=== PATIENT | female | born 1975 | race Caucasian/White ===

== ENCOUNTER 2019-06-08 05:05 | Inpatient (IN) | payer OTHER ==
[2019-06-08 05:43] LABS: ADD MAN DIFF? NO
[2019-06-08] MEDS: SOD CHLORIDE 0.9% 1,000 ML IV ×2 (05:44→09:43)
[2019-06-08] MEDS: morphine 4 MG/ML VIAL IV ×3 (05:44→09:44)
[2019-06-08] MEDS: ONDANSETRON 4 MG INJ IV ×2 (05:44→15:53)
[2019-06-08 05:48] LABS: BASOPHILS % 0.1 % (0.0-2.0); HEMOGLOBIN 15.3 g/dl (12.0-16.0); LYMPHOCYTES # 1.5 10^3/ul (0.8-2.9); LYMPHOCYTES % 7.4 % (15.0-51.0); MEAN CORPUSCULAR HGB CONC 33.3 g/dl (32.0-37.0); MEAN CORPUSCULAR VOLUME 93.1 fl (82.0-101.0); MEAN PLATELET VOLUME 9.9 fl (7.4-10.4); MONOCYTE # 1.5 10^3/ul (0.3-0.9); MONOCYTES % 7.1 % (0.0-11.0); NEUTROPHIL # 17.5 10^3/ul (1.6-7.5); NEUTROPHILS % 84.9 % (39.0-77.0); PLATELET COUNT 251 10^3/UL (140-415); RED BLOOD COUNT 4.94 10^6/ul (4.20-5.40); RED CELL DISTRIBUTION WIDTH 12.3 % (11.5-14.5)
[2019-06-08 05:48] LABS: WHITE BLOOD COUNT 20.7 10^3/ul (4.8-10.8)
[2019-06-08 06:05] LABS: ALANINE AMINOTRANSFERASE 30 IU/L (13-69); ALBUMIN 4.3 g/dl (3.3-4.9); ALKALINE PHOSPHATASE 76 IU/L (42-121); ANION GAP 9 (5-13); ASPARTATE AMINO TRANSFERASE 23 IU/L (15-46); BILIRUBIN,INDIRECT 0.8 mg/dl (0-1.1); BILIRUBIN,TOTAL 0.8 mg/dl (0.2-1.3); BLOOD UREA NITROGEN 11 mg/dl (7-20); CALCIUM 9.4 mg/dl (8.4-10.2); CARBON DIOXIDE 27 mmol/L (21-31); CHLORIDE 102 mmol/L (97-110); CREATININE 0.77 mg/dl (0.44-1.00); Estimated GFR > 60 mL/min (>60); GLUCOSE 125 mg/dl (70-220); LIPASE 73 U/L (23-300); SODIUM 138 mmol/L (135-144); TOTAL PROTEIN 7.6 g/dl (6.1-8.1)
[2019-06-08] MEDS: CEFTRIAXONE 1 GM/50 ML (PMX) 50 ML IVPB (07:08)
[2019-06-08] MEDS: metroNIDAZOLE 500 MG/NS (PMX) 100 ML IVPB ×2 (07:45→22:34)
[2019-06-08] MEDS ORDERED: ONDANSETRON 4 MG INJ IV ×2 (09:00→14:30)
[2019-06-08] MEDS ORDERED: ACETAMINOPHEN 325 MG TAB PO (09:00)
[2019-06-08] MEDS ORDERED: NA PHOSPHATE/BIPHOS 133 ML ENEMA PR (10:30)
[2019-06-08] MEDS ORDERED: NACL 0.9% 3 ML SYG IV (10:30)
[2019-06-08] MEDS: DIPHTH/TET/ACEL PERTUSS (ADULT) 0.5 ML VIAL IM* (11:27)
[2019-06-08 11:28] LABS: THYROID STIMULATING HORMONE 0.965 MIU/L (0.465-4.680)
[2019-06-08 11:28] LABS: HEPATITIS B SURFACE ANTIGEN NEGATIVE (NEGATIVE)
[2019-06-08 11:45] LABS: HEPATITIS C VIRAL ANTIBODY NEGATIVE (NEGATIVE)
[2019-06-08] MEDS: FLUTICASONE/VILANTEROL 100-25 INH (11:51)
[2019-06-08] MEDS ORDERED: PROPOFOL 20 ML (13:26)
[2019-06-08] MEDS ORDERED: ROCURONIUM 50 MG INJ (13:41)
[2019-06-08] MEDS ORDERED: LIDOCAINE 2% (SDV) 5 ML INJ (13:41)
[2019-06-08] MEDS ORDERED: DEXAMETHASONE 4 MG/ML 5 ML INJ (13:44)
[2019-06-08] MEDS ORDERED: ONDANSETRON 4 MG INJ (13:45)
[2019-06-08] MEDS ORDERED: SODIUM CL BACTERIOSTATIC 30 ML INJ (13:59)
[2019-06-08] MEDS: BUPIVACAINE 0.5%/EPI (SDV) 10 ML INJ (14:03)
[2019-06-08] MEDS ORDERED: SUGAMMADEX SODIUM 200 MG/2 ML VIAL IV (14:07)
[2019-06-08] MEDS ORDERED: OXYCODONE/ACETAMINOPHEN (5/325) TAB PO (14:30)
[2019-06-08] MEDS: HYDROmorphONE 0.5 MG/0.5 ML SYG IV ×2 (15:39→22:35)
[2019-06-08] MEDS: OXYCODONE/ACETAMINOPHEN (5/325) TAB PO (18:18)
[2019-06-08] MEDS: CEFAZOLIN 1 GM/50 ML (PMX) 50 ML IVPB (21:43)
[2019-06-08] MEDS: FAMOTIDINE 20 MG INJ IV (21:48)
[2019-06-09] MEDS: HYDROmorphONE 0.5 MG/0.5 ML SYG IV ×2 (03:56→11:01)
[2019-06-09 05:25] LABS: ADD MAN DIFF? NO
[2019-06-09 05:30] LABS: WHITE BLOOD COUNT 16.8 10^3/ul (4.8-10.8)
[2019-06-09 05:30] LABS: BASOPHILS % 0.1 % (0.0-2.0); HEMATOCRIT 37.8 % (37.0-47.0); HEMOGLOBIN 12.2 g/dl (12.0-16.0); LYMPHOCYTES # 1.1 10^3/ul (0.8-2.9); LYMPHOCYTES % 6.7 % (15.0-51.0); MEAN CORPUSCULAR HEMOGLOBIN 30.9 pg (29.0-33.0); MEAN CORPUSCULAR HGB CONC 32.3 g/dl (32.0-37.0); MEAN CORPUSCULAR VOLUME 95.7 fl (82.0-101.0); MEAN PLATELET VOLUME 10.1 fl (7.4-10.4); NEUTROPHIL # 14.5 10^3/ul (1.6-7.5); NEUTROPHILS % 86.7 % (39.0-77.0); PLATELET COUNT 194 10^3/UL (140-415); RED BLOOD COUNT 3.95 10^6/ul (4.20-5.40); RED CELL DISTRIBUTION WIDTH 12.9 % (11.5-14.5)
[2019-06-09] MEDS: CEFAZOLIN 1 GM/50 ML (PMX) 50 ML IVPB (05:55)
[2019-06-09 05:57] LABS: ALANINE AMINOTRANSFERASE 29 IU/L (13-69); ALBUMIN 2.9 g/dl (3.3-4.9); ALBUMIN/GLOBULIN RATIO 0.96; ALKALINE PHOSPHATASE 58 IU/L (42-121); ANION GAP 3 (5-13); ASPARTATE AMINO TRANSFERASE 33 IU/L (15-46); BILIRUBIN,INDIRECT 0.3 mg/dl (0-1.1); BILIRUBIN,TOTAL 0.3 mg/dl (0.2-1.3); BLOOD UREA NITROGEN 8 mg/dl (7-20); CALCIUM 8.1 mg/dl (8.4-10.2); CARBON DIOXIDE 26 mmol/L (21-31); CHLORIDE 106 mmol/L (97-110); CREATININE 0.67 mg/dl (0.44-1.00); Estimated GFR > 60 mL/min (>60); GLUCOSE 98 mg/dl (70-220); POTASSIUM 3.7 mmol/L (3.5-5.1); SODIUM 135 mmol/L (135-144); TOTAL PROTEIN 5.9 g/dl (6.1-8.1)
[2019-06-09] MEDS: metroNIDAZOLE 500 MG/NS (PMX) 100 ML IVPB ×3 (06:29→22:15)
[2019-06-09] MEDS: OXYCODONE/ACETAMINOPHEN (5/325) TAB PO (07:31)
[2019-06-09] MEDS: FLUTICASONE/VILANTEROL 100-25 INH (09:00)
[2019-06-09] MEDS: FAMOTIDINE 20 MG TAB PO ×2 (09:40→20:43)
[2019-06-09 11:08] LABS: LACTIC ACID 1.2 mmol/L (0.5-2.0)
[2019-06-09] MEDS: morphine 2 MG INJ IV (13:09)
[2019-06-09] MEDS: LACTOBACILLUS RHAMNOSUS CAP PO ×2 (13:09→20:43)
[2019-06-09] MEDS: DOCUSATE SODIUM 250 MG CAP PO (13:09)
[2019-06-09] MEDS: LEVOFLOXACIN 500MG/D5W (PMX) 100 ML IVPB (13:10)
[2019-06-09] MEDS: HYDROCODONE/APAP (7.5/325) TAB PO ×2 (14:27→20:43)
[2019-06-09] MEDS: morphine 4 MG/ML VIAL IV ×2 (17:32→22:16)
[2019-06-09] MEDS: ACETAMINOPHEN 500 MG TAB PO (18:45)
[2019-06-10] MEDS: ACETAMINOPHEN 500 MG TAB PO ×3 (02:22→12:30)
[2019-06-10] MEDS: morphine 4 MG/ML VIAL IV ×4 (02:22→22:46)
[2019-06-10 05:06] LABS: ADD MAN DIFF? NO
[2019-06-10 05:07] LABS: BASOPHILS % 0.2 % (0.0-2.0); EOSINOPHILS % 0.2 % (0.0-7.0); HEMATOCRIT 36.2 % (37.0-47.0); HEMOGLOBIN 11.9 g/dl (12.0-16.0); LYMPHOCYTES # 1.4 10^3/ul (0.8-2.9); LYMPHOCYTES % 9.7 % (15.0-51.0); MEAN CORPUSCULAR HEMOGLOBIN 31.1 pg (29.0-33.0); MEAN CORPUSCULAR HGB CONC 32.9 g/dl (32.0-37.0); MEAN CORPUSCULAR VOLUME 94.5 fl (82.0-101.0); MONOCYTE # 1.3 10^3/ul (0.3-0.9); MONOCYTES % 8.5 % (0.0-11.0); NEUTROPHILS % 80.9 % (39.0-77.0); PLATELET COUNT 174 10^3/UL (140-415); RED BLOOD COUNT 3.83 10^6/ul (4.20-5.40); RED CELL DISTRIBUTION WIDTH 12.9 % (11.5-14.5)
[2019-06-10 05:07] LABS: WHITE BLOOD COUNT 14.8 10^3/ul (4.8-10.8)
[2019-06-10 05:38] LABS: ANION GAP 4 (5-13); BLOOD UREA NITROGEN 7 mg/dl (7-20); CARBON DIOXIDE 26 mmol/L (21-31); CHLORIDE 104 mmol/L (97-110); CREATININE 0.69 mg/dl (0.44-1.00); Estimated GFR > 60 mL/min (>60); GLUCOSE 87 mg/dl (70-220); MAGNESIUM 1.7 mg/dl (1.7-2.5); PHOSPHORUS 2.9 mg/dl (2.5-4.9); POTASSIUM 3.5 mmol/L (3.5-5.1); SODIUM 134 mmol/L (135-144)
[2019-06-10] MEDS: metroNIDAZOLE 500 MG/NS (PMX) 100 ML IVPB ×2 (05:54→14:19)
[2019-06-10] MEDS: HYDROCODONE/APAP (7.5/325) TAB PO ×2 (05:55→14:19)
[2019-06-10] MEDS: DOCUSATE SODIUM 250 MG CAP PO (09:00)
[2019-06-10] MEDS: FAMOTIDINE 20 MG TAB PO ×2 (09:00→21:56)
[2019-06-10] MEDS: LACTOBACILLUS RHAMNOSUS CAP PO ×2 (09:00→21:56)
[2019-06-10] MEDS: FLUTICASONE/VILANTEROL 100-25 INH (09:30)
[2019-06-10] MEDS: IOHEXOL 14.3 MG(I)/ML (ADULT) BTL PO (10:14)
[2019-06-10] MEDS: ONDANSETRON 4 MG INJ IV (10:18)
[2019-06-10] MEDS: CEFTRIAXONE 1 GM/50 ML (PMX) 50 ML IVPB (11:33)
[2019-06-10] MEDS: POLYETHYLENE GLYCOL 17 GM PACKET PO (12:00)
[2019-06-10] MEDS: IOHEXOL 300MG/ML 150 ML BTL (12:14)
[2019-06-10] MEDS: SOD CHLORIDE 0.9% 100 ML (12:14)
[2019-06-10] MEDS: LEVOFLOXACIN 500MG/D5W (PMX) 100 ML IVPB (12:17)
[2019-06-10] MEDS: PIPER-TAZO 3.375 GM IV (PMX) 100 ML IVPB (17:21)
[2019-06-11] MEDS: PIPER-TAZO 3.375 GM IV (PMX) 100 ML IVPB ×4 (00:04→19:59)
[2019-06-11] MEDS: ACETAMINOPHEN 650 MG SUPP PR (02:49)
[2019-06-11 06:13] LABS: ADD MAN DIFF? NO
[2019-06-11 06:19] LABS: WHITE BLOOD COUNT 19.4 10^3/ul (4.8-10.8)
[2019-06-11 06:19] LABS: ABNORMAL IP MESSAGE 1; BASOPHILS % 0.2 % (0.0-2.0); EOSINOPHILS # 0.1 10^3/ul (0.0-0.5); EOSINOPHILS % 0.4 % (0.0-7.0); HEMATOCRIT 35.6 % (37.0-47.0); HEMOGLOBIN 11.8 g/dl (12.0-16.0); LYMPHOCYTES # 1.1 10^3/ul (0.8-2.9); LYMPHOCYTES % 5.6 % (15.0-51.0); MEAN CORPUSCULAR HGB CONC 33.1 g/dl (32.0-37.0); MEAN CORPUSCULAR VOLUME 93.4 fl (82.0-101.0); MEAN PLATELET VOLUME 10.2 fl (7.4-10.4); MONOCYTE # 1.5 10^3/ul (0.3-0.9); MONOCYTES % 7.8 % (0.0-11.0); NEUTROPHIL # 16.6 10^3/ul (1.6-7.5); NEUTROPHILS % 85.4 % (39.0-77.0); PLATELET COUNT 211 10^3/UL (140-415); RED BLOOD COUNT 3.81 10^6/ul (4.20-5.40)
[2019-06-11 06:28] LABS: POSITIVE DIFF @See below
[2019-06-11 06:41] LABS: ANION GAP 9 (5-13); BLOOD UREA NITROGEN 6 mg/dl (7-20); CALCIUM 8.2 mg/dl (8.4-10.2); CARBON DIOXIDE 25 mmol/L (21-31); CHLORIDE 101 mmol/L (97-110); CREATININE 0.61 mg/dl (0.44-1.00); Estimated GFR > 60 mL/min (>60); GLUCOSE 69 mg/dl (70-220); POTASSIUM 3.2 mmol/L (3.5-5.1); SODIUM 135 mmol/L (135-144)
[2019-06-11] MEDS: morphine 4 MG/ML VIAL IV ×3 (06:53→21:36)
[2019-06-11] MEDS: POLYETHYLENE GLYCOL 17 GM PACKET PO (09:00)
[2019-06-11] MEDS: FLUTICASONE/VILANTEROL 100-25 INH (09:59)
[2019-06-11] MEDS: LACTOBACILLUS RHAMNOSUS CAP PO ×2 (10:00→21:30)
[2019-06-11] MEDS: DOCUSATE SODIUM 250 MG CAP PO (10:00)
[2019-06-11] MEDS: FAMOTIDINE 20 MG TAB PO ×2 (10:00→21:30)
[2019-06-11 12:57] LABS: INR 1.34; PROTIME 16.7 Sec (11.9-14.9); PT RATIO 1.3
[2019-06-11 12:58] LABS: PARTIAL THROMBOPLASTIN TIME 36.9 Sec (23.0-35.0)
[2019-06-11] MEDS: IOHEXOL 300MG/ML 150 ML BTL (13:36)
[2019-06-11] MEDS: FENTAnyl 50 MCG/ML VIAL ×2 (14:19→14:35)
[2019-06-11] MEDS: LIDOCAINE 1% (MDV) 20 ML INJ (14:19)
[2019-06-11] MEDS: ACETAMINOPHEN 325 MG TAB PO (21:38)
[2019-06-12] MEDS: morphine 4 MG/ML VIAL IV (05:07)
[2019-06-12] MEDS: PIPER-TAZO 3.375 GM IV (PMX) 100 ML IVPB ×5 (05:09→23:41)
[2019-06-12 06:19] LABS: ADD MAN DIFF? NO
[2019-06-12 06:21] LABS: WHITE BLOOD COUNT 10.8 10^3/ul (4.8-10.8)
[2019-06-12 06:21] LABS: BASOPHILS % 0.2 % (0.0-2.0); EOSINOPHILS # 0.1 10^3/ul (0.0-0.5); HEMOGLOBIN 11.4 g/dl (12.0-16.0); LYMPHOCYTES # 1.1 10^3/ul (0.8-2.9); LYMPHOCYTES % 10.6 % (15.0-51.0); MEAN CORPUSCULAR HEMOGLOBIN 30.4 pg (29.0-33.0); MEAN CORPUSCULAR HGB CONC 32.6 g/dl (32.0-37.0); MEAN CORPUSCULAR VOLUME 93.3 fl (82.0-101.0); MEAN PLATELET VOLUME 9.8 fl (7.4-10.4); NEUTROPHIL # 8.5 10^3/ul (1.6-7.5); NEUTROPHILS % 78.7 % (39.0-77.0); PLATELET COUNT 226 10^3/UL (140-415); RED BLOOD COUNT 3.75 10^6/ul (4.20-5.40); RED CELL DISTRIBUTION WIDTH 13.2 % (11.5-14.5)
[2019-06-12 07:07] LABS: ANION GAP 6 (5-13); BLOOD UREA NITROGEN 5 mg/dl (7-20); CALCIUM 8.2 mg/dl (8.4-10.2); CARBON DIOXIDE 30 mmol/L (21-31); CHLORIDE 103 mmol/L (97-110); CREATININE 0.63 mg/dl (0.44-1.00); Estimated GFR > 60 mL/min (>60); GLUCOSE 121 mg/dl (70-220); POTASSIUM 3.4 mmol/L (3.5-5.1); SODIUM 139 mmol/L (135-144)
[2019-06-12] MEDS: POLYETHYLENE GLYCOL 17 GM PACKET PO (09:00)
[2019-06-12] MEDS: FAMOTIDINE 20 MG TAB PO ×2 (09:31→20:47)
[2019-06-12] MEDS: LACTOBACILLUS RHAMNOSUS CAP PO ×2 (09:31→20:47)
[2019-06-12] MEDS: FLUTICASONE/VILANTEROL 100-25 INH (09:31)
[2019-06-12] MEDS: DOCUSATE SODIUM 250 MG CAP PO (09:31)
[2019-06-12] MEDS: HYDROCODONE/APAP (7.5/325) TAB PO ×2 (09:36→17:46)
[2019-06-12] MEDS: POTASSIUM CHLORIDE (SR) 20 MEQ TAB PO (13:47)
[2019-06-12] MEDS: SOD CHLORIDE 0.9% 500 ML IV (13:48)
[2019-06-12] MEDS: ENOXAPARIN 40 MG/0.4 ML SYG SC (14:00)
[2019-06-12] MEDS: HYDROmorphONE 0.5 MG/0.5 ML SYG IV (20:49)
[2019-06-12] MEDS: DIPHENHYDRAMINE 50 MG INJ IV (22:17)
[2019-06-13] MEDS: HYDROCODONE/APAP (7.5/325) TAB PO ×2 (04:11→18:34)
[2019-06-13] MEDS: PIPER-TAZO 3.375 GM IV (PMX) 100 ML IVPB ×3 (05:47→17:42)
[2019-06-13 06:02] LABS: ADD MAN DIFF? NO
[2019-06-13 06:12] LABS: WHITE BLOOD COUNT 10.1 10^3/ul (4.8-10.8)
[2019-06-13 06:12] LABS: BASOPHILS % 0.4 % (0.0-2.0); EOSINOPHILS # 0.2 10^3/ul (0.0-0.5); EOSINOPHILS % 2.3 % (0.0-7.0); HEMATOCRIT 32.6 % (37.0-47.0); LYMPHOCYTES # 1.7 10^3/ul (0.8-2.9); LYMPHOCYTES % 16.4 % (15.0-51.0); MEAN CORPUSCULAR HEMOGLOBIN 31.3 pg (29.0-33.0); MEAN CORPUSCULAR HGB CONC 33.7 g/dl (32.0-37.0); MEAN CORPUSCULAR VOLUME 92.6 fl (82.0-101.0); MEAN PLATELET VOLUME 9.8 fl (7.4-10.4); MONOCYTE # 0.9 10^3/ul (0.3-0.9); MONOCYTES % 8.8 % (0.0-11.0); NEUTROPHIL # 7.3 10^3/ul (1.6-7.5); NEUTROPHILS % 71.5 % (39.0-77.0); PLATELET COUNT 246 10^3/UL (140-415); RED BLOOD COUNT 3.52 10^6/ul (4.20-5.40); RED CELL DISTRIBUTION WIDTH 13.2 % (11.5-14.5)
[2019-06-13 06:35] LABS: ANION GAP 5 (5-13); BLOOD UREA NITROGEN 7 mg/dl (7-20); CALCIUM 8.2 mg/dl (8.4-10.2); CARBON DIOXIDE 26 mmol/L (21-31); CHLORIDE 106 mmol/L (97-110); CREATININE 0.54 mg/dl (0.44-1.00); Estimated GFR > 60 mL/min (>60); GLUCOSE 93 mg/dl (70-220); POTASSIUM 3.7 mmol/L (3.5-5.1); SODIUM 137 mmol/L (135-144)
[2019-06-13] MEDS: FAMOTIDINE 20 MG TAB PO (09:19)
[2019-06-13] MEDS: FLUTICASONE/VILANTEROL 100-25 INH (09:19)
[2019-06-13] MEDS: LACTOBACILLUS RHAMNOSUS CAP PO (09:20)
[2019-06-13] MEDS: DOCUSATE SODIUM 250 MG CAP PO (09:20)
[2019-06-13] MEDS: POLYETHYLENE GLYCOL 17 GM PACKET PO (09:20)
[2019-06-13] MEDS: ENOXAPARIN 40 MG/0.4 ML SYG SC (09:25)
== END 2019-06-13 18:45 | disposition short-term general hospital (02) | DRG 854 ==
LOC: E/R 05:05 → REC 08:58 → MS1 15:58
PROVIDERS: Internal Medicine
PROC: 0DTJ4ZZ Resection of Appendix, Percutaneous Endoscopic Approach (ICD-10-PCS; principal; 2019-06-08 13:00)
DX: A41.9 Sepsis, unspecified organism (principal); K35.30 Acute appendicitis with localized peritonitis, without perforation or gangrene; J45.20 Mild intermittent asthma, uncomplicated; K42.9 Umbilical hernia without obstruction or gangrene; F17.200 Nicotine dependence, unspecified, uncomplicated; B96.20 Unspecified Escherichia coli [E. coli] as the cause of diseases classified elsewhere; B96.1 Klebsiella pneumoniae [K. pneumoniae] as the cause of diseases classified elsewhere; B95.2 Enterococcus as the cause of diseases classified elsewhere
CPT/HCPCS: 36415; 74176; 74177; 75989; 77012; 80048; 80053; 83605; 83690; 83735; 84100; 84443; 84703; 85025; 85610; 85730; 86803; 87040-91; 87070; 87075; 87340; 88304; 96361; 96365; 96367; 96375; 96376; 99285-25